=== PATIENT | male | born 1960 | race Caucasian/White ===

== ENCOUNTER 2017-12-23 05:47 | Outpatient (CLI) | payer BC ==
[~2017-12-23] VITALS: Ht 180.3 cm; Wt 96.2 kg
[~2017-12-23 05:47] MED LIST: ASCORBIC ACID500 MG PO; HYDROCODONE-APA1 TAB PO; LOTREL 5/20 MG1 CAP; NIFEREX-150 CAP1 CA3 PO; VITAMIN B-12500 MCG PO; XELODA500 MG PO
[2017-12-23 06:31] VITALS: Ht 180.3 cm; Wt 96.2 kg
[2017-12-23 06:34] LABS: BASOPHILS 0.4 % (0-2); EOSINOPHILS 2.5 % (0-7); HEMATOCRIT 36.7 % (42.0-54.0); IMMATURE GRANULOCYTES 0.4 % (0-5); LYMPHOCYTES 11.7 % (15-50); MCH 29.2 pg (26.0-34.0); MCHC 32.7 g/dL (31.0-37.0); MCV 89.3 fL (80.0-100.0); MONOCYTES 9.5 % (2-11); NEUTROPHILS 75.5 % (40-80); RBC 4.11 10x6/uL (4.20-6.10); RDW 14.5 % (11.5-14.5); WBC 8.4 10x3/uL (4.8-10.8)
[2017-12-23 06:36] LABS: PLATELET COUNT 208 10x3/uL (130-400)
[2017-12-23 06:42] LABS: APTT 26.5 SECONDS (22.8-39.4); INR 0.84 (0.85-1.17); PROTIME 11.2 SECONDS (11.6-15.0)
[2017-12-23 07:17] LABS: ANION GAP 14.1 mmol/L (8-16); CARBON DIOXIDE 26.5 mmol/L (21.0-32.0); CREATININE - SERUM 1.1 mg/dL (0.6-1.3); POTASSIUM - SERUM 3.6 mmol/L (3.5-5.1)
== END 2017-12-23 13:24 | disposition home or self-care (01) ==
LOC: D.OPS 05:47 → D.CT 08:00 → D.OPS 13:24
PROVIDERS: Radiology Diagnostic Radiology
DX: C78.7 Secondary malignant neoplasm of liver and intrahepatic bile duct (principal); Z01.812 Encounter for preprocedural laboratory examination

== ENCOUNTER 2018-10-06 05:55 | Outpatient (CLI) | payer BC ==
[~2018-10-06] VITALS: Ht 180.3 cm; Wt 96.4 kg
[2018-10-06 06:33] LABS: ANION GAP 11.1 mmol/L (8-16); CALCIUM 8.9 mg/dL (8.5-10.1); CARBON DIOXIDE 26.4 mmol/L (21.0-32.0); CREATININE - SERUM 1.3 mg/dL (0.6-1.3); POTASSIUM - SERUM 3.5 mmol/L (3.5-5.1)
[2018-10-06 06:44] LABS: BASOPHILS 0.3 % (0-2); EOSINOPHILS 3.1 % (0-7); HEMATOCRIT 42.5 % (42.0-54.0); HEMOGLOBIN 13.9 g/dL (13.5-17.5); IMMATURE GRANULOCYTES 0.2 % (0-5); LYMPHOCYTES 16.6 % (15-50); MCH 32.4 pg (26.0-34.0); MCHC 32.7 g/dL (31.0-37.0); MCV 99.1 fL (80.0-100.0); MEAN PLATELET VOLUME 10.7 fL (7.4-10.4); NEUTROPHILS 68.8 % (40-80); RBC 4.29 10x6/uL (4.20-6.10); RDW 14.7 % (11.5-14.5); WBC 6.2 10x3/uL (4.8-10.8)
[2018-10-06 06:47] LABS: PLATELET COUNT 152 10x3/uL (130-400)
[2018-10-06 06:54] LABS: APTT 28.2 SECONDS (22.8-39.4)
[2018-10-06 06:55] LABS: INR 0.91 (0.85-1.17); PROTIME 11.8 SECONDS (11.6-15.0)
[2018-10-06 07:29] VITALS: BP 187/119; Ht 180.3 cm; Wt 96.4 kg
== END 2018-10-06 12:20 | disposition home or self-care (01) ==
LOC: D.SP 05:55
PROVIDERS: General Practice
DX: R91.1 Solitary pulmonary nodule (principal); L76.22 Postprocedural hemorrhage of skin and subcutaneous tissue following other procedure; Y84.8 Other medical procedures as the cause of abnormal reaction of the patient, or of later complication, without mention of misadventure at the time of the procedure

== ENCOUNTER → 2021-03-11 10:06 | Outpatient (CLI) | payer BC ==
[2020-10-04 10:12] VITALS: BMI 29.0
[~2021-03-11 10:06] MED LIST changes: +HYDROCODON-ACE1 EA10 PO; +LOTREL 5-20 MG1 CAP PO
[2021-03-11 10:31] LABS: BASOPHILS 0.5 % (0-2); EOSINOPHILS 1.4 % (0-7); HEMATOCRIT 42.5 % (42.0-54.0); HEMOGLOBIN 14.1 g/dL (13.5-17.5); IMMATURE GRANULOCYTES 0.2 % (0-5); LYMPHOCYTE ABS# 0.96 10x3/uL (1.32-3.57); LYMPHOCYTES 14.4 % (15-50); MCH 30.5 pg (26.0-34.0); MCHC 33.2 g/dL (31.0-37.0); MEAN PLATELET VOLUME 9.6 fL (7.4-10.4); MONOCYTES 11.6 % (2-11); NEUTROPHILS 71.9 % (40-80); RBC 4.62 10x6/uL (4.20-6.10); RDW 14.8 % (11.5-14.5); WBC 6.7 10x3/uL (4.8-10.8)
[2021-03-11 10:32] LABS: PLATELET COUNT 180 10x3/uL (130-400)
[2021-03-11 10:45] LABS: ALBUMIN 3.4 g/dL (3.4-5.0); ANION GAP 13.4 mmol/L (8-16); BILIRUBIN - TOTAL 0.48 mg/dL (0.2-1.3); CALCIUM 8.7 mg/dL (8.5-10.1); CARBON DIOXIDE 27.2 mmol/L (21.0-32.0); CREATININE - SERUM 1.3 mg/dL (0.6-1.3); POTASSIUM - SERUM 3.6 mmol/L (3.5-5.1); PROTEIN - SERUM 6.9 g/dL (6.4-8.2)
== END | disposition home or self-care (01) ==
LOC: D.LAB 10:06
PROVIDERS: ATTEND Internal Medicine Medical Oncology
DX: C20 Malignant neoplasm of rectum (principal); C78.7 Secondary malignant neoplasm of liver and intrahepatic bile duct; C78.01 Secondary malignant neoplasm of right lung; C77.8 Secondary and unspecified malignant neoplasm of lymph nodes of multiple regions

== ENCOUNTER 2021-03-20 06:40 | Day surgery (SDC) | payer BC ==
[~2021-03-20] VITALS: Ht 180.3 cm; Wt 95.5 kg
[2021-03-20 07:18] LABS: BASOPHILS 0.2 % (0-2); EOSINOPHILS 1.8 % (0-7); HEMATOCRIT 46.2 % (42.0-54.0); HEMOGLOBIN 15.4 g/dL (13.5-17.5); IMMATURE GRANULOCYTES 0.2 % (0-5); LYMPHOCYTE ABS# 0.81 10x3/uL (1.32-3.57); LYMPHOCYTES 13.3 % (15-50); MCH 30.6 pg (26.0-34.0); MCHC 33.3 g/dL (31.0-37.0); MCV 91.7 fL (80.0-100.0); MEAN PLATELET VOLUME 9.4 fL (7.4-10.4); NEUTROPHIL ABS# 4.55 10x3/uL (1.78-5.38); NEUTROPHILS 74.5 % (40-80); PLATELET COUNT 178 10x3/uL (130-400); RBC 5.04 10x6/uL (4.20-6.10); WBC 6.1 10x3/uL (4.8-10.8)
[2021-03-20 07:27] LABS: ALBUMIN 3.6 g/dL (3.4-5.0); BILIRUBIN - TOTAL 0.87 mg/dL (0.2-1.3); CALCIUM 8.9 mg/dL (8.5-10.1); CARBON DIOXIDE 27.3 mmol/L (21.0-32.0); CREATININE - SERUM 1.5 mg/dL (0.6-1.3); POTASSIUM - SERUM 3.3 mmol/L (3.5-5.1); PROTEIN - SERUM 7.2 g/dL (6.4-8.2)
[2021-03-20 08:47] VITALS: BP 193/107; Ht 180.3 cm; Wt 95.5 kg
--- NOTE | 2021-03-20 11:15 | NUR ---
DR FAJARDO AT BEDSIDE
--- NOTE | 2021-03-20 11:30 | NUR ---
DC TEACHING TO PT, VERBALIZED UNDERSTANDING. THIS NURSENOTIFIED DR. FAJARDO OF PT'S HIGH BP READINGS, PER DR FAJARDO PT MAY DC. 1145 PIV DC'D WITH CATHETER INTACT, PT VOIDED, DRESSED 1159 PT DC'D VIA WC ACCOMPANIED BY THIS NURSE TO POV WITH FAMILY MEMBER DRIVING. ALL BELONGINGS AND DC PACKET WITH PT.
--- NOTE | 2021-03-20 18:10 | OP ---
PATIENT NAME: INDY VANESSA MEDICAL RECORD: [id number] :62 LOCATION:D.OPS ADMISSION DATE: SURGEON: RICCARDO FAJARDO DO DATE OF OPERATION: 03/20/2021 PROCEDURE: Colonoscopy with polypectomy. 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 SCOPE: Olympus video pediatric colonoscope. MEDICATIONS: Propofol 670 mg IV per anesthesia. WITHDRAWAL TIME: 18 minutes. ESTIMATED BLOOD LOSS: Minimal. COMPLICATIONS: None. FINDINGS AND DESCRIPTION OF PROCEDURE: Informed consent was given. The patient was made comfortable with the above medication and placed on his left side. Digital rectal examination was performed and revealed some post-surgical changes that were palpated on digital rectal examination with no obvious abnormalities. The endoscope was advanced under direct visualization through the rectum to the cecum, confirmed by the presence of the appendiceal orifice and ileocecal valve. The endoscope was slowly withdrawn and the mucosa was carefully examined. The prep quality was poor. There were multiple polyps visualized on today's examination. In the hepatic flexure and ascending colon alone there were 5 separate polyps. In the hepatic flexure, the polyp measured approximately 8 mm in diameter. It was removed using a hot snare. In the ascending colon, there were four separate polyps, which ranged in size from 4 mm to 1 cm. The largest was removed using endoscopic mucosal resection technique utilizing injection of isotonic saline followed by hot snare polypectomy. The other 3 polyps were removed using a hot snare. In the descending colon, there was one benign-appearing sessile polyp, which measured approximately 5 mm in diameter. It was removed using a hot snare. There was evidence of moderate diverticulosis involving the entire colon. There was evidence of prior surgery, which was a low anterior resection and ileostomy reversal in the rectal area. Retroflexion was not performed. The endoscope was withdrawn from the patient. The patient tolerated the procedure well and there were no complications. IMPRESSION: 1. Six polyps as described above, removed using a combination of a hot snare and EMR technique. 2. Moderate diverticulosis of the entire colon. 3. Evidence of prior surgery. PLAN AND RECOMMENDATIONS: 1. Discharge home when recovery parameters are met. 2. Follow up biopsy specimen results. 3. High fiber diet. 4. Continue current medications. 5. Recall colonoscopy in 1 year. OPERATIVE REPORT [id number] INDY VANESSA TRANSINT:[id number] Voice Confirmation ID: [id number] DOCUMENT ID: [id number] RICCARDO FAJARDO DO at 1810 CC: [id number] DICTATION DATE: 03/20/21 1103 [employer] VENDOR: 03/20/21 1351 [facility] 03/20/21 [place] [id number] [place] [id number]
== END 2021-03-20 11:59 | disposition home or self-care (01) ==
LOC: D.OPS 06:40
PROVIDERS: ATTEND Internal Medicine Gastroenterology
DX: Z85.048 Personal history of other malignant neoplasm of rectum, rectosigmoid junction, and anus (principal); K63.5 Polyp of colon; K57.30 Diverticulosis of large intestine without perforation or abscess without bleeding; Z93.2 Ileostomy status; Z90.49 Acquired absence of other specified parts of digestive tract